=== PATIENT | female | born 1935 | race Caucasian/White ===

== ENCOUNTER 2017-06-16 05:44 | Inpatient (IN) ==
--- NOTE | 2017-06-11 10:40 | Order Completion Report ---
See report scanned to EMR
[2017-06-11 10:51] LABS: Basophils % 0.9 % (0.0-0.8); Eosinophils # 0.4 10*3/uL (0.0-0.87); Eosinophils % 7.9 % (0.00-10.9); Hematocrit 40.3 VOL% (35.7-47.0); Hemoglobin 13.4 GM/DL (12.0-16.0); Immature Granulocytes % 0.4 %; Immature Granulocytes Absolute 0.02 #; Lymphocytes % 21.9 % (21.3-54.2); Mean Corpuscular HGB Conc 33.3 GM/DL (32-36); Mean Corpuscular Hemoglobin 34 PG (27-34); Mean Corpuscular Volume 102.3 FL (87-102); Mean Platelet Volume 9.7 FL (9.6-12.0); Monocytes # 0.3 10*3/uL (0.11-0.8); Monocytes % 6.4 % (1.7-12.7); Neutrophils # 2.9 10*3/uL (1.4-7.4); Neutrophils % 62.5 % (38.7-73.9); Platelet Count 222 T/CUMM (130-400); Red Blood Count 3.94 MC/CUMM (3.8-5.5); Red Cell Distribution Width 12.7 % (9.3-17.3); White Blood Count 4.7 T/CUMM (4-12)
[2017-06-11 11:09] LABS: Calcium 8.5 MG/DL (8.5-10.1); Osmolality,Calculated 279.3 MOS/KG (273-304); Potassium 4.3 MMOL/L (3.5-5.1)
[2017-06-16] MEDS ORDERED: ceFAZolin 1,000 MG VIAL ONE (05:57)
[2017-06-16] MEDS ORDERED: SODIUM CHLORIDE 0.9% 50 ML IV ONE (05:57)
[2017-06-16] MEDS ORDERED: LACTATED RINGERS 1,000 ML IV SCH (07:00)
[2017-06-16] MEDS ORDERED: MORPHINE 2 MG/1 ML SYRINGE IV PRN (08:06)
[2017-06-16] MEDS ORDERED: ACETAMINOPHEN 325 MG TABLET PO PRN (08:06)
[2017-06-16] MEDS ORDERED: ONDANSETRON 4 MG/2 ML VIAL IV PRN ×2 (08:06→08:40)
--- NOTE | 2017-06-16 08:14 | Operative Note ---
Date of procedure: 06/16/17 Pre-op diagnosis: Gastrocutaneous fistula Post-op diagnosis: same Procedure: Procedure performed: Partial gastrectomy Procedure in detail: After informed consent was obtained the patient was taken operating suite lies upon the operating table. After general anesthesia was induced the abdomen was prepped and draped in usual sterile fashion. Upper midline incision was made and dissection carried down through skin and soft tissue. The fascia was opened. Abdominal cavity was entered. There were no adhesions in the area except for the stomach adherent up to the anterior abdominal wall just on the left of the incision. This was along the greater curvature and it was approximately a 2 cm tract of stomach extending up through the fascia and into the subcutaneous tissue forming the gastrocutaneous fistula. GARO stapling device with a blue load was used to transect the tongue of tissue along the greater curve. The portion of transected stomach was then dissected circumferentially out of the subcutaneous tissue and passed off the field. The defect was closed with 0 Prolene [id number] suture. The staple line on the remaining stomach was imbricated with 2-0 silk suture. There was excellent hemostasis and no leaking. The abdomen and wound were thoroughly irrigated and suctioned. There was good hemostasis and the fascia was closed with #1 Running Loop PDS. Skin closed with jessica. Quarter inch iodoform packing was placed in the wound where the gastrocutaneous fistula had been present. Sterile dressings applied and the patient was extubated and taken recovery room in stable condition. All lap and needle counts correct at the end of the case per Anesthesia: SHERIE Surgeon / Physician: Rosalio Jorgensen Estimated blood loss: other (Less than 10 cc) Specimens: other (Portion of stomach) Condition: stable Disposition: PACU Results - Labs CBC & BMP: 06/11/17 10:44 06/11/17 10:44 Discharge Plan - Discharge Medications No Action Esomeprazole Magnesium [Nexium] 40 mg PO DAILY Hydroxychloroquine [Plaquenil] 400 mg PO DAILY Aspirin [Ecotrin] 81 mg PO DAILY Ergocalciferol [Drisdol] 50,000 unit PO Q7D Phenytoin 7 ml PO DAILY Ondansetron Tab [Zofran Tab] 4 mg PO Q4H PRN PRN Reason: Nausea Polyethylene Glycol Powder [Miralax] 17 gm PO BEDTIME PRN PRN Reason: Constipation Magnesium Hydroxide Susp [Milk of Magnesia] 30 ml PO BEDTIME PRN PRN Reason: Constipation Simethicone 15 ml PO DAILY PRN PRN Reason: Gas Uti Stat 30 ml PO BID Bisacodyl Supp [Dulcolax Supp] 10 mg RECTAL DAILY PRN PRN Reason: Constipation Calcium (Citrate) [Citracal] 200 mg PEG BID Furosemide Tab [Lasix Tab] 20 mg PO DAILY levETIRAcetam LIQUID [Keppra Liquid] 5 ml PEG DAILY Acetaminophen Tab [Tylenol Tab] 650 mg PO Q4HR PRN PRN Reason: Pain Phenytoin 6 ml PO BEDTIME Folic Acid Tab 1 mg PO DAILY - Follow Up or Referral - Forms/Instructions
[2017-06-16] MEDS ORDERED: HYDROmorphone 2 MG/1 ML VIAL ONE (08:21)
[2017-06-16] MEDS ORDERED: ONDANSETRON 4 MG/2 ML VIAL ONE ×3 (08:21→09:00)
[2017-06-16] MEDS: HYDROmorphone 2 MG/1 ML VIAL IV PRN ×4 (08:23→09:01)
[2017-06-16] MEDS ORDERED: SEVOFLURANE 1 UNIT/15 MINUTE INH ONE ×2 (08:35→09:00)
[2017-06-16] MEDS ORDERED: PROPOFOL 200 MG/20 ML VIAL IV ONE ×2 (08:35→09:00)
[2017-06-16] MEDS ORDERED: SODIUM CHLORIDE 0.9% 250 ML IV ONE (08:36)
[2017-06-16] MEDS ORDERED: ROCURONIUM 100 MG/10 ML VIAL IV ONE ×2 (08:36→09:00)
[2017-06-16] MEDS ORDERED: fentaNYL 100 MCG/2 ML VIAL ONE (08:36)
[2017-06-16] MEDS ORDERED: NEOSTIGMINE 10 MG/10 ML VIAL ONE ×2 (08:36→09:00)
[2017-06-16] MEDS ORDERED: GLYCOPYRROLATE 0.4 MG/2 ML VIAL ONE ×2 (08:36→09:00)
[2017-06-16] MEDS ORDERED: PHENYLEPHRINE 1 MG/10 ML SYRINGE IV ONE (09:00)
[2017-06-16] MEDS ORDERED: LIDOCAINE 2% 5 ML VIAL ONE (09:00)
[2017-06-16] MEDS: DEXTROSE 5% NACL 0.45% 1,000 ML IV SCH (09:27)
--- NOTE | 2017-06-16 11:46 | Anesthesia Post-Op ---
Anesthesia Post OP - Post Ansesthetic Evaluation Patient seen in post op: Yes Resp: within normal limits CV: within normal limits Mental: within normal limits Temp: within normal limits [id number]: within normal limits Nausea and Vomiting: within normal limits Pain: within normal limits
[2017-06-16] MEDS: PANTOPRAZOLE 40 MG TABLET PO SCH (13:40)
[2017-06-16] MEDS: PHENYTOIN 100 MG/4 ML UDCUP PO SCH ×3 (13:41→21:43)
[2017-06-16] MEDS: levETIRAcetam LIQUID 100 MG/ML 30 ML/BOTTLE PO SCH ×2 (13:41→21:42)
[2017-06-16] MEDS: FUROSEMIDE 20 MG TABLET PO SCH (13:42)
[2017-06-16] MEDS: HYDROXYCHLOROQUINE 200 MG TABLET PO SCH (13:42)
[2017-06-17 06:19] LABS: Basophils % 0.3 % (0.0-0.8); Eosinophils # 0.2 10*3/uL (0.0-0.87); Eosinophils % 3.4 % (0.00-10.9); Hematocrit 39.4 VOL% (35.7-47.0); Hemoglobin 13.3 GM/DL (12.0-16.0); Immature Granulocytes % 0.3 %; Immature Granulocytes Absolute 0.02 #; Lymphocytes # 0.8 10*3/uL (1.4-4.0); Lymphocytes % 12.4 % (21.3-54.2); Mean Corpuscular HGB Conc 33.8 GM/DL (32-36); Mean Corpuscular Hemoglobin 35 PG (27-34); Mean Corpuscular Volume 102.3 FL (87-102); Mean Platelet Volume 10.3 FL (9.6-12.0); Monocytes # 0.4 10*3/uL (0.11-0.8); Monocytes % 5.9 % (1.7-12.7); Neutrophils # 4.7 10*3/uL (1.4-7.4); Neutrophils % 77.7 % (38.7-73.9); Platelet Count 224 T/CUMM (130-400); Red Blood Count 3.85 MC/CUMM (3.8-5.5); White Blood Count 6.1 T/CUMM (4-12)
[2017-06-17 06:54] LABS: Calcium 8.2 MG/DL (8.5-10.1); Osmolality,Calculated 274.7 MOS/KG (273-304); Potassium 4.5 MMOL/L (3.5-5.1)
[2017-06-17] MEDS: HYDROXYCHLOROQUINE 200 MG TABLET PO SCH (09:43)
[2017-06-17] MEDS: FUROSEMIDE 20 MG TABLET PO SCH (09:44)
[2017-06-17] MEDS: PANTOPRAZOLE 40 MG TABLET PO SCH (09:45)
[2017-06-17] MEDS: ASPIRIN EC 81 MG TABLET PO SCH (09:45)
[2017-06-17] MEDS: FOLIC ACID 1 MG TABLET PO SCH (09:46)
[2017-06-17] MEDS: PHENYTOIN 100 MG/4 ML UDCUP PO SCH ×2 (09:47→21:43)
[2017-06-17] MEDS: levETIRAcetam LIQUID 100 MG/ML 30 ML/BOTTLE PO SCH (09:50)
[2017-06-17] MEDS: DEXTROSE 5% NACL 0.45% 1,000 ML IV SCH (09:55)
--- NOTE | 2017-06-17 11:04 | Event Note ---
Patient is postop day #1 status post partial gastrectomy. She is tolerating clears without nausea, vomiting, or abdominal pain. She is passing flatus. Her pain is well controlled and she is voiding without difficulty. Vital signs are stable she is afebrile. Labs reviewed and unremarkable. Lungs are clear to auscultation bilaterally. Heart regular rate and rhythm. Abdomen is soft with appropriate postoperative tenderness; and is nondistended and bowel sounds are present. Midline incision is clean, dry and intact with jessica intact. Fistula site with packing in place and no active drainage or surrounding erythema. Skin K changes are chronic and noted to the abdomen from previous irritation injury. Calves are soft and nontender without pedal edema. At this point, the patient appears stable for discharge. She will require clear liquid diet for the next 3 days and then can advance to soft diet. We will see if she can transfer back to the nursing facility today.
--- NOTE | 2017-06-17 18:16 | Pathology Report from [facility] ---
[facility] [place] ACCESSION # : [id number] PATIENT NAME : Lili Mcgovern V. ORDERING DR : Rosalio Jorgensen MD CLINICAL HX: Gastrocutaneous fistula POST-OP DX: Same SPECIMEN INFO: Piece of stomach GROSS DESCRIPTION: The specimen is received in formalin labeled LILI MCGOVERN consists of a segment of stomach tissue measuring 3.0 x 1.8 cm. The serosa is pink-enriquez with a 0.4 x 0.4 cm fistula noted. A technical services representative section is submitted in one cassette. DIAGNOSIS FOR LILI MCGOVERN: GASTROCUTANEOUS FISTULA, EXCISION: Benign squamous and gastric mucosa with chronic inflammation and reactive changes. Intestinal metaplasia present. COLLECTED DATE: 06/16/2017 [facility] REPORT DATE: 06/17/2017 ELECTRONICALLY SIGNED BY: Mar Martinez M.D. 06/17/2017 - 11:34:55 MTDD
[2017-06-18] MEDS: DEXTROSE 5% NACL 0.45% 1,000 ML IV SCH (06:10)
[2017-06-18] MEDS: PANTOPRAZOLE 40 MG TABLET PO SCH (08:55)
[2017-06-18] MEDS: ASPIRIN EC 81 MG TABLET PO SCH (08:55)
[2017-06-18] MEDS: FOLIC ACID 1 MG TABLET PO SCH (08:55)
[2017-06-18] MEDS: FUROSEMIDE 20 MG TABLET PO SCH (08:55)
[2017-06-18] MEDS: HYDROXYCHLOROQUINE 200 MG TABLET PO SCH (08:55)
[2017-06-18] MEDS: PHENYTOIN 100 MG/4 ML UDCUP PO SCH ×2 (08:57→20:56)
[2017-06-18] MEDS: levETIRAcetam LIQUID 100 MG/ML 30 ML/BOTTLE PO SCH (08:59)
--- NOTE | 2017-06-18 09:26 | Event Note ---
Patient is postop day #2 status post partial gastrectomy. She feels much improved this morning. She is tolerating clears without nausea, vomiting, or abdominal pain. Her and daughter at the bedside. Vital signs stable; afebrile. Abdomen is soft and appropriately tender postop. Midline and surgical incision is clean, dry and intact with jessica intact. Skin changes improved over the abdomen. Initial site is clean. Are soft and nontender without pedal edema. We will plan to continue clears today and try a soft diet in the morning. She will likely be ready for discharge after 3 midnight stay tomorrow. I requested bed to chair Jessica lift transfers as the patient is nonambulatory.
[2017-06-19] MEDS: DEXTROSE 5% NACL 0.45% 1,000 ML IV SCH (05:53)
--- NOTE | 2017-06-19 07:49 | Event Note ---
Afebrile vital signs stable. She is doing well has been tolerating clear liquids. Mild incisional pain. Overall improving. Erythema continues to improve. She can be discharged back to [facility], hopefully today. Continue packing the old fistula site until it has completely healed. I will see the patient back in 2 weeks to remove the jessica. Family instructed to call sooner for any problems. She will begin advancing her diet to more soft food today.
--- NOTE | 2017-06-19 09:35 | Discharge Summary ---
Hospital Course - Hospital Course Hospital Course: The patient is an 81-year-old female who underwent partial gastrectomy for gastric cutaneous fistula on 06/16/[address] Jorgensen. Her postoperative course was uneventful. She tolerated liquid diet initially and then transitioned to soft diet without complication. [facility] with discharge instructions. No complications to note. Diagnosis - Discharge Diagnosis (1) Gastrocutaneous fistula Status: Acute Specialty Discharge - Follow Up or Referrals Follow up with: Rosalio Jorgensen MD [Physician] - 07/02/17 9:45 am (2 wks) Discharge Plan - Discharge Data Disposition: Disch To Home/Self Care Condition at Discharge: Stable Discharge Diet: other (Soft diet) Activity: increase activity as tolerated Contact your physician if you experience:: fever over 101, Redness or swelling, Nausea/Vomiting, Bleeding, pain uncontrolled by pain medications Wound / Dressing Care Instructions: -Keep surgical incision clean, dry and covered. -Change packing daily with quarter inch iodoform gauze - Discharge Medications New HYDROcodone/ACETAMIN 7.5-325 [[place]by 7.5-325] 1 tablet PO Q4H PRN #40 tablet PRN Reason: Pain Moderate To Severe (4-10) Continue Esomeprazole Magnesium [Nexium] 40 mg PO DAILY Hydroxychloroquine [Plaquenil] 400 mg PO DAILY Aspirin [Ecotrin] 81 mg PO DAILY Ergocalciferol [Drisdol] 50,000 unit PO Q7D Phenytoin 7 ml PO QAM Ondansetron Tab [Zofran Tab] 4 mg PO Q4H PRN PRN Reason: Nausea Polyethylene Glycol Powder [Miralax] 17 gm PO BEDTIME PRN PRN Reason: Constipation Magnesium Hydroxide Susp [Milk of Magnesia] 30 ml PO BEDTIME PRN PRN Reason: Constipation Simethicone 15 ml PO DAILY PRN PRN Reason: Gas Uti Stat 30 ml PO BID Bisacodyl Supp [Dulcolax Supp] 10 mg RECTAL DAILY PRN PRN Reason: Constipation Calcium (Citrate) [Citracal] 200 mg PO BID Furosemide Tab [Lasix Tab] 20 mg PO DAILY levETIRAcetam LIQUID [Keppra Liquid] 500 mg PO DAILY Acetaminophen Tab [Tylenol Tab] 650 mg PO Q4HR PRN PRN Reason: Pain Phenytoin 6 ml PO BEDTIME Folic Acid Tab 1 mg PO DAILY - Follow Up or Referral Follow Up: Rosalio Jorgensen MD [Physician] - 07/02/17 9:45 am (2 wks) - Forms/Instructions Instructions: Gastrectomy (DC) Exam - Constitutional Vitals: Period Temp Pulse Resp BP Sys/Meyers Pulse Ox Last 24 Hr 97.0 F-98.0 F 84-90 18-20 117-140/55-86 90-98 General appearance: no acute distress - Respiratory Respiratory exam: Present: clear to auscultation bilaterally - Cardiovascular Cardiovascular exam: Present: regular rate and rhythm - GI/Abdominal GI/Abdominal exam: Present: hypoactive bowel sounds, tenderness (Appropriately tender breast), soft, other (Surgical incision is clean, dry and intact. Sheela are intact. Fistulous clean without drainage) - Extremities Exam Extremities exam: Absent: calf tenderness, edema - Psychiatric Psychiatric exam: Present: normal affect, normal mood - Skin Skin exam: Present: normal color, warm DS: Provider Date of admission: 06/16/17 08:06 Primary care physician: Sid Ayala MD Attending physician on admission: Rosalio Jorgensen MD Consults: None Discharging clinician: Rashida Cadena PA-C
[2017-06-19] MEDS: ASPIRIN EC 81 MG TABLET PO SCH (10:13)
[2017-06-19] MEDS: FOLIC ACID 1 MG TABLET PO SCH (10:14)
[2017-06-19] MEDS: PHENYTOIN 100 MG/4 ML UDCUP PO SCH (10:14)
[2017-06-19] MEDS: HYDROXYCHLOROQUINE 200 MG TABLET PO SCH (10:14)
[2017-06-19] MEDS: FUROSEMIDE 20 MG TABLET PO SCH (10:14)
[2017-06-19] MEDS: levETIRAcetam LIQUID 100 MG/ML 30 ML/BOTTLE PO SCH (10:14)
[2017-06-19] MEDS: PANTOPRAZOLE 40 MG TABLET PO SCH (10:15)
[2017-06-19 12:01] VITALS: BP 146/64
== END 2017-06-19 12:25 | DRG 328 ==
LOC: N.OR 05:44 → N.SDSINP 05:45 → N.3E 08:06
PROVIDERS: ADMIT Surgery; ATTEND Surgery

== ENCOUNTER 2018-11-17 10:25 | Inpatient (IN) ==
[2018-11-17] MEDS ORDERED: LEVOFLOXACIN INJ 500 MG in PREMIX 1 EACH IV STA (10:42)
[2018-11-17 11:17] LABS: Basophils % 0.1 % (0.0-0.8); Hematocrit 36.6 VOL% (35.7-47.0); Hemoglobin 11.3 GM/DL (12.0-16.0); Immature Granulocytes % 2.3 %; Immature Granulocytes Absolute 0.18 #; Lymphocytes # 0.6 10*3/uL (1.4-4.0); Lymphocytes % 7.8 % (21.3-54.2); Mean Corpuscular HGB Conc 30.9 GM/DL (32-36); Mean Corpuscular Hemoglobin 32 PG (27-34); Mean Corpuscular Volume 104.6 FL (87-102); Monocytes # 0.5 10*3/uL (0.11-0.8); Monocytes % 6.1 % (1.7-12.7); Neutrophils # 6.4 10*3/uL (1.4-7.4); Neutrophils % 83.7 % (38.7-73.9); Platelet Count 219 T/CUMM (130-400); Red Cell Distribution Width 14.3 % (9.3-17.3); White Blood Count 7.7 T/CUMM (4-12)
[2018-11-17 11:34] LABS: Bilirubin,Total 0.8 MG/DL (0.2-1.0); Calcium 8.8 MG/DL (8.5-10.1); Osmolality,Calculated 283.3 MOS/KG (273-304); Potassium 3.8 MMOL/L (3.5-5.1)
[2018-11-17 13:07] LABS: Anisocytosis 2+; Band Neutrophils 45 % (0-10); Lymphocytes 9 % (20-55); Metamyelocytes 7 %; Segmented Neutrophils 35 % (50-85); Total Cells Counted 100
[2018-11-17 13:08] LABS: Hypochromasia 1+; Macrocytosis 2+; Platelet Estimate Normal; Polychromasia 1+
[2018-11-17] MEDS ORDERED: ONDANSETRON 4 MG/2 ML VIAL IV PRN (13:32)
[2018-11-17] MEDS ORDERED: ALBUTEROL 2.5 MG/3 ML NEB RESP TX PRN (13:32)
[2018-11-17] MEDS ORDERED: FUROSEMIDE 40 MG/4 ML VIAL IV STA (13:43)
[2018-11-17] MEDS ORDERED: PANTOPRAZOLE 40 MG VIAL IV SCH (14:00)
[2018-11-17 14:40] LABS: Amorphous Crystals,Urine Few /HPF (Few); Apearance,Urine Slightly Hazy (Clear); Bilirubin,Urine Negative (Negative); Blood, Urine Negative (Negative); Glucose,Urine (UA) Negative (Negative); Ketones,Urine 5 mg/dL (Negative); Nitrite,Urine Negative (Negative); Protein,Urine 100 MG/DL; Urine Color Amber (Yellow); Urine Specific Gravity 1.026 (1.001-1.035); Urine Urobilinogen < 2.0 EU/DL (0.2-1.0)
[2018-11-17 14:45] LABS: ABG Base Excess 3.8 MMOL/L (-2.5-2.5); ABG HCO3 27.8 MMOL/L (20-26); ABG Oxygen Saturation 95.7 % (95-100); ABG PCO2 40.6 MM HG (35-48); ABG PH 7.449 (7.35-7.45); ABG PO2 73.9 MM HG (80-95); ABG TCO2 24.9 MMOL/L (23-27)
[2018-11-17] MEDS ORDERED: SODIUM CHLORIDE 0.9% 100 ML IV ONE (16:07)
[2018-11-17] MEDS: cefTRIAXone 1,000 MG in SYRINGE 1 EACH IV SCH (16:23)
[2018-11-17] MEDS: AZITHROMYCIN INJ 500 MG in SODIUM CHLORIDE 0.9% 250 ML IV SCH (16:54)
[2018-11-17] MEDS: ENOXAPARIN 40 MG/0.4 ML SYRINGE SUBCUT SCH (21:19)
[2018-11-18 05:37] LABS: Basophils % 0.2 % (0.0-0.8); Eosinophils % 0.2 % (0.00-10.9); Hematocrit 34.4 VOL% (35.7-47.0); Hemoglobin 10.6 GM/DL (12.0-16.0); Immature Granulocytes % 2.7 %; Immature Granulocytes Absolute 0.24 #; Lymphocytes # 0.6 10*3/uL (1.4-4.0); Lymphocytes % 7.1 % (21.3-54.2); Mean Corpuscular HGB Conc 30.8 GM/DL (32-36); Mean Corpuscular Hemoglobin 32 PG (27-34); Mean Corpuscular Volume 104.9 FL (87-102); Mean Platelet Volume 10.1 FL (9.6-12.0); Monocytes # 0.5 10*3/uL (0.11-0.8); Monocytes % 5.7 % (1.7-12.7); NRBC # 0.02 10*3/uL; Neutrophils # 7.6 10*3/uL (1.4-7.4); Neutrophils % 84.1 % (38.7-73.9); Platelet Count 204 T/CUMM (130-400); Red Blood Count 3.28 MC/CUMM (3.8-5.5); Red Cell Distribution Width 14.3 % (9.3-17.3)
[2018-11-18 05:57] LABS: Albumin 1.8 G/DL (3.4-5.0); Bilirubin,Total 0.9 MG/DL (0.2-1.0); Calcium 8.6 MG/DL (8.5-10.1); Potassium 3.6 MMOL/L (3.5-5.1); Total Protein 6.5 G/DL (6.4-8.3)
[2018-11-18 06:06] LABS: Band Neutrophils 12 % (0-10); Lymphocytes 4 % (20-55); Segmented Neutrophils 78 % (50-85); Total Cells Counted 100
[2018-11-18 06:07] LABS: Hypochromasia Slight; Macrocytosis Slight
[2018-11-18] MEDS ORDERED: BISACODYL 10 MG SUPP RECTAL PRN (09:53)
[2018-11-18] MEDS ORDERED: POLYETHYLENE GLYCOL POWDER 17 GM PACK PO PRN (09:53)
[2018-11-18] MEDS ORDERED: MAGNESIUM HYDROXIDE SUSP 30 ML UDCUP PO PRN (09:53)
[2018-11-18] MEDS: SODIUM CHLORIDE 0.9% 1,000 ML IV SCH (17:16)
[2018-11-18] MEDS: cefTRIAXone 1,000 MG in SYRINGE 1 EACH IV SCH (17:16)
[2018-11-18] MEDS: AZITHROMYCIN INJ 500 MG in SODIUM CHLORIDE 0.9% 250 ML IV SCH (17:21)
[2018-11-18] MEDS: CALCIUM (CITRATE) 200 MG TABLET PO SCH (21:45)
[2018-11-18] MEDS: ENOXAPARIN 40 MG/0.4 ML SYRINGE SUBCUT SCH (21:45)
[2018-11-18] MEDS: PHENYTOIN ER 100 MG CAPSULE PO SCH (21:45)
[2018-11-19 04:29] LABS: Basophils % 0.1 % (0.0-0.8); Eosinophils # 0.1 10*3/uL (0.0-0.87); Eosinophils % 0.5 % (0.00-10.9); Hematocrit 33.9 VOL% (35.7-47.0); Hemoglobin 10.5 GM/DL (12.0-16.0); Immature Granulocytes % 4.8 %; Immature Granulocytes Absolute 0.47 #; Lymphocytes # 0.7 10*3/uL (1.4-4.0); Lymphocytes % 7.3 % (21.3-54.2); Mean Corpuscular Hemoglobin 32 PG (27-34); Mean Corpuscular Volume 104.6 FL (87-102); Mean Platelet Volume 10.2 FL (9.6-12.0); Monocytes # 0.5 10*3/uL (0.11-0.8); Monocytes % 4.8 % (1.7-12.7); Neutrophils # 8.1 10*3/uL (1.4-7.4); Neutrophils % 82.5 % (38.7-73.9); Platelet Count 250 T/CUMM (130-400); Red Blood Count 3.24 MC/CUMM (3.8-5.5); Red Cell Distribution Width 14.5 % (9.3-17.3); White Blood Count 9.9 T/CUMM (4-12)
[2018-11-19 05:00] LABS: Calcium 8.5 MG/DL (8.5-10.1); Osmolality,Calculated 291.7 MOS/KG (273-304); Potassium 3.2 MMOL/L (3.5-5.1)
[2018-11-19 05:06] LABS: Platelet Estimate Normal
[2018-11-19 05:07] LABS: Polychromasia Few
[2018-11-19] MEDS: FOLIC ACID 1 MG TABLET PO SCH (09:04)
[2018-11-19] MEDS: ASPIRIN EC 81 MG TABLET PO SCH (09:04)
[2018-11-19] MEDS: PANTOPRAZOLE 40 MG TABLET PO SCH (09:04)
[2018-11-19] MEDS: CALCIUM (CITRATE) 200 MG TABLET PO SCH (09:04)
[2018-11-19] MEDS: HYDROXYCHLOROQUINE 200 MG TABLET PO SCH (09:04)
[2018-11-19] MEDS: ESCITALOPRAM 10 MG TABLET PO SCH (09:04)
[2018-11-19] MEDS: SODIUM CHLORIDE 0.9% 1,000 ML IV SCH (09:05)
[2018-11-19] MEDS: levETIRAcetam 500 MG TABLET PO SCH (09:05)
[2018-11-19] MEDS ORDERED: MAGNESIUM SULF RIDER 4 GM in PREMIX 1 EACH IV PRN (09:29)
[2018-11-19] MEDS ORDERED: MAGNESIUM SULF RIDER 2 GM in PREMIX 1 EACH IV PRN (09:29)
[2018-11-19] MEDS ORDERED: AZITHROMYCIN 250 MG TABLET PO SCH (10:00)
[2018-11-19] MEDS: POTASSIUM CHLORIDE RIDER 10 MEQ in PREMIX 1 EACH IV PRN ×4 (12:10→18:09)
[2018-11-19] MEDS ORDERED: ACETAMINOPHEN 325 MG TABLET PO PRN (15:15)
[2018-11-19] MEDS: cefTRIAXone 1,000 MG in SYRINGE 1 EACH IV SCH (15:29)
[2018-11-19] MEDS: cefTAZidime 1,000 MG in SYRINGE 1 EACH IV SCH (18:09)
[2018-11-19] MEDS ORDERED: QUEtiapine 25 MG TABLET PO SCH (21:00)
[2018-11-19] MEDS: ENOXAPARIN 40 MG/0.4 ML SYRINGE SUBCUT SCH (21:11)
[2018-11-19] MEDS: PHENYTOIN ER 100 MG CAPSULE PO SCH (21:11)
[2018-11-19] MEDS: QUEtiapine 25 MG TABLET PO SCH (21:12)
[2018-11-20] MEDS: cefTAZidime 1,000 MG in SYRINGE 1 EACH IV SCH ×3 (00:03→17:20)
[2018-11-20 05:57] LABS: Basophils # 0.1 10*3/uL (0.0-0.2); Basophils % 0.9 % (0.0-0.8); Eosinophils # 0.3 10*3/uL (0.0-0.87); Eosinophils % 4.2 % (0.00-10.9); Hematocrit 32.7 VOL% (35.7-47.0); Hemoglobin 9.8 GM/DL (12.0-16.0); Immature Granulocytes % 6.2 %; Immature Granulocytes Absolute 0.48 #; Lymphocytes # 0.7 10*3/uL (1.4-4.0); Lymphocytes % 9.3 % (21.3-54.2); Mean Corpuscular Hemoglobin 32 PG (27-34); Mean Corpuscular Volume 107.6 FL (87-102); Mean Platelet Volume 10.4 FL (9.6-12.0); Monocytes # 0.4 10*3/uL (0.11-0.8); Monocytes % 4.9 % (1.7-12.7); Neutrophils # 5.8 10*3/uL (1.4-7.4); Neutrophils % 74.5 % (38.7-73.9); Platelet Count 230 T/CUMM (130-400); Red Blood Count 3.04 MC/CUMM (3.8-5.5); Red Cell Distribution Width 14.7 % (9.3-17.3); White Blood Count 7.8 T/CUMM (4-12)
[2018-11-20 06:13] LABS: Calcium 8.2 MG/DL (8.5-10.1); Osmolality,Calculated 287.7 MOS/KG (273-304); Potassium 3.7 MMOL/L (3.5-5.1)
[2018-11-20 06:23] LABS: Band Neutrophils 3 % (0-10); Eosinophils 5 % (0-10); Hypochromasia 1+; Lymphocytes 8 % (20-55); Platelet Estimate Adequate; Segmented Neutrophils 78 % (50-85); Total Cells Counted 100
[2018-11-20] MEDS ORDERED: PHENYTOIN ER 100 MG CAPSULE PO ONE (09:00)
[2018-11-20] MEDS: ASPIRIN EC 81 MG TABLET PO SCH (11:04)
[2018-11-20] MEDS: levETIRAcetam 500 MG TABLET PO SCH (11:04)
[2018-11-20] MEDS: HYDROXYCHLOROQUINE 200 MG TABLET PO SCH (11:04)
[2018-11-20] MEDS: PANTOPRAZOLE 40 MG TABLET PO SCH (11:04)
[2018-11-20] MEDS: ESCITALOPRAM 10 MG TABLET PO SCH (11:04)
[2018-11-20] MEDS: FOLIC ACID 1 MG TABLET PO SCH (11:04)
[2018-11-20] MEDS: DORNASE ALFA 2.5 MG/2.5 ML VIAL RESP TX SCH (19:05)
[2018-11-20] MEDS: PHENYTOIN ER 100 MG CAPSULE PO SCH (20:56)
[2018-11-20] MEDS: ENOXAPARIN 40 MG/0.4 ML SYRINGE SUBCUT SCH (20:56)
[2018-11-20] MEDS: QUEtiapine 25 MG TABLET PO SCH (20:57)
[2018-11-21] MEDS: cefTAZidime 1,000 MG in SYRINGE 1 EACH IV SCH ×3 (01:48→16:51)
[2018-11-21] MEDS: DORNASE ALFA 2.5 MG/2.5 ML VIAL RESP TX SCH ×2 (07:11→19:39)
[2018-11-21] MEDS: ESCITALOPRAM 10 MG TABLET PO SCH (09:56)
[2018-11-21] MEDS: HYDROXYCHLOROQUINE 200 MG TABLET PO SCH (09:56)
[2018-11-21] MEDS: PANTOPRAZOLE 40 MG TABLET PO SCH (09:56)
[2018-11-21] MEDS: ASPIRIN EC 81 MG TABLET PO SCH (09:56)
[2018-11-21] MEDS: levETIRAcetam 500 MG TABLET PO SCH (09:56)
[2018-11-21] MEDS: FOLIC ACID 1 MG TABLET PO SCH (09:56)
[2018-11-21] MEDS: ENOXAPARIN 40 MG/0.4 ML SYRINGE SUBCUT SCH (20:32)
[2018-11-21] MEDS: PHENYTOIN ER 100 MG CAPSULE PO SCH (20:33)
[2018-11-21] MEDS ORDERED: MELATONIN 3 MG TABLET PO SCH (21:00)
[2018-11-22] MEDS: cefTAZidime 1,000 MG in SYRINGE 1 EACH IV SCH ×2 (00:24→09:40)
[2018-11-22] MEDS: DORNASE ALFA 2.5 MG/2.5 ML VIAL RESP TX SCH (07:53)
[2018-11-22] MEDS: FOLIC ACID 1 MG TABLET PO SCH (09:33)
[2018-11-22] MEDS: ASPIRIN EC 81 MG TABLET PO SCH (09:34)
[2018-11-22] MEDS: HYDROXYCHLOROQUINE 200 MG TABLET PO SCH (09:34)
[2018-11-22] MEDS: ESCITALOPRAM 10 MG TABLET PO SCH (09:34)
[2018-11-22] MEDS: PANTOPRAZOLE 40 MG TABLET PO SCH (09:34)
[2018-11-22] MEDS: levETIRAcetam 500 MG TABLET PO SCH (09:34)
[2018-11-22 11:09] VITALS: BP 127/57
== END 2018-11-22 14:10 | DRG 177 ==
LOC: EDUNIT# → EDBD → N.ED 10:25 → SUATTDRO 13:32 → N.EDINP 13:32 → N.ICU 17:32 → N.5E 11-18 16:22
PROVIDERS: ADMIT Internal Medicine; ATTEND Internal Medicine

== ENCOUNTER 2019-04-21 23:24 | Inpatient (IN) ==
[2019-04-22 00:10] LABS: PT Patient Result 10.7 SECS; Partial Thromboplastin Time 22.4 SECS (0-40)
[2019-04-22 00:16] LABS: Alanine Aminotransferase 15 U/L (13-56); Albumin 2.8 G/DL (3.4-5.0); Alkaline Phosphatase 116 U/L (45-117); Aspartate Amino Transferase 19 U/L (0-37); Bilirubin,Total < 0.39 MG/DL (0.2-1.0); Blood Urea Nitrogen 15 MG/DL (7-18); Calcium 8.4 MG/DL (8.5-10.1); Glucose 136 MG/DL (74-106); Osmolality,Calculated 283.3 MOS/KG (273-304); Total Protein 7.1 G/DL (6.4-8.3)
[2019-04-22 00:43] LABS: Basophils % 0.3 % (0.0-0.8); Eosinophils # 0.4 10*3/uL (0.0-0.87); Eosinophils % 10.5 % (0.00-10.9); Hematocrit 18.9 VOL% (35.7-47.0); Immature Granulocytes % 0.5 %; Immature Granulocytes Absolute 0.02 #; Lymphocytes # 0.7 10*3/uL (1.4-4.0); Lymphocytes % 19.1 % (21.3-54.2); Mean Corpuscular HGB Conc 28.6 GM/DL (32-36); Mean Corpuscular Volume 95.5 FL (87-102); Mean Platelet Volume 10.4 FL (9.6-12.0); Monocytes % 8.1 % (1.7-12.7); Neutrophils % 61.5 % (38.7-73.9); Platelet Count 207 T/CUMM (130-400); Red Blood Count 1.98 MC/CUMM (3.8-5.5); White Blood Count 3.8 T/CUMM (4-12)
[2019-04-22 00:58] LABS: Hemoglobin 5.4 GM/DL (12.0-16.0)
[2019-04-22 01:04] LABS: Anisocytosis 1+; Hypochromasia 2+; Microcytosis 1+; Platelet Estimate Normal; Polychromasia Few
[2019-04-22] MEDS ORDERED: ONDANSETRON 4 MG/2 ML VIAL IV PRN (02:39)
[2019-04-22] MEDS ORDERED: NICOTINE 21 MG/24 HR PATCH TRANSDERM PRN (02:39)
[2019-04-22] MEDS ORDERED: MORPHINE 4 MG/1 ML VIAL IV PRN (02:39)
[2019-04-22] MEDS ORDERED: SODIUM CHLORIDE 0.9% 1,000 ML IV PRN (02:39)
[2019-04-22] MEDS ORDERED: PANTOPRAZOLE INJ 80 MG in SODIUM CHLORIDE 0.9% 100 ML IV ONE (03:30)
[2019-04-22] MEDS: PANTOPRAZOLE INJ 200 MG in SODIUM CHLORIDE 0.9% 250 ML IV SCH (05:00)
[2019-04-22 08:24] LABS: Basophils % 0.6 % (0.0-0.8); Eosinophils # 0.4 10*3/uL (0.0-0.87); Eosinophils % 9.8 % (0.00-10.9); Hematocrit 22.3 VOL% (35.7-47.0); Hemoglobin 6.7 GM/DL (12.0-16.0); Immature Granulocytes % 0.6 %; Immature Granulocytes Absolute 0.02 #; Lymphocytes # 0.7 10*3/uL (1.4-4.0); Lymphocytes % 19.1 % (21.3-54.2); Mean Corpuscular Volume 94.5 FL (87-102); Neutrophils % 62.9 % (38.7-73.9); Platelet Count 180 T/CUMM (130-400); Red Blood Count 2.36 MC/CUMM (3.8-5.5); Red Cell Distribution Width 14.7 % (9.3-17.3); White Blood Count 3.6 T/CUMM (4-12)
[2019-04-22] MEDS ORDERED: LACTATED RINGERS 500 ML IV SCH (10:00)
[2019-04-22 15:28] LABS: Hemoglobin 8.3 GM/DL (12.0-16.0)
[2019-04-23 05:27] LABS: Basophils % 0.7 % (0.0-0.8); Eosinophils # 0.4 10*3/uL (0.0-0.87); Eosinophils % 10.3 % (0.00-10.9); Hemoglobin 8.3 GM/DL (12.0-16.0); Immature Granulocytes % 0.7 %; Immature Granulocytes Absolute 0.03 #; Lymphocytes # 0.7 10*3/uL (1.4-4.0); Lymphocytes % 15.9 % (21.3-54.2); Mean Corpuscular HGB Conc 30.7 GM/DL (32-36); Mean Corpuscular Volume 93.8 FL (87-102); Mean Platelet Volume 10.4 FL (9.6-12.0); Monocytes % 6.6 % (1.7-12.7); Neutrophils % 65.8 % (38.7-73.9); Platelet Count 196 T/CUMM (130-400); Red Blood Count 2.88 MC/CUMM (3.8-5.5); White Blood Count 4.3 T/CUMM (4-12)
[2019-04-23] MEDS: PANTOPRAZOLE INJ 200 MG in SODIUM CHLORIDE 0.9% 250 ML IV SCH (06:29)
[2019-04-23] MEDS ORDERED: POTASSIUM CHLORIDE 20 MEQ TABLET PO PRN (14:45)
[2019-04-23] MEDS: POTASSIUM CHLORIDE RIDER 10 MEQ in PREMIX 1 EACH IV PRN (17:37)
[2019-04-23] MEDS: POLYETHYLENE GLYCOL POWDER 17 GM PACK PO SCH (21:00)
[2019-04-24] MEDS: POTASSIUM CHLORIDE RIDER 10 MEQ in PREMIX 1 EACH IV PRN ×2 (00:11→02:07)
[2019-04-24 03:59] LABS: Basophils % 0.5 % (0.0-0.8); Eosinophils # 0.3 10*3/uL (0.0-0.87); Eosinophils % 7.3 % (0.00-10.9); Hematocrit 27.6 VOL% (35.7-47.0); Hemoglobin 8.3 GM/DL (12.0-16.0); Immature Granulocytes Absolute 0.04 #; Lymphocytes # 0.4 10*3/uL (1.4-4.0); Lymphocytes % 10.8 % (21.3-54.2); Mean Corpuscular HGB Conc 30.1 GM/DL (32-36); Mean Corpuscular Volume 93.9 FL (87-102); Mean Platelet Volume 10.4 FL (9.6-12.0); Monocytes % 6.3 % (1.7-12.7); Neutrophils % 74.1 % (38.7-73.9); Platelet Count 192 T/CUMM (130-400); Red Blood Count 2.94 MC/CUMM (3.8-5.5); Red Cell Distribution Width 14.8 % (9.3-17.3)
[2019-04-24] MEDS: PANTOPRAZOLE INJ 200 MG in SODIUM CHLORIDE 0.9% 250 ML IV SCH (06:19)
[2019-04-24 07:44] LABS: Albumin 2.4 G/DL (3.4-5.0); Bilirubin,Total 0.5 MG/DL (0.2-1.0); Calcium 7.7 MG/DL (8.5-10.1); Osmolality,Calculated 275.4 MOS/KG (273-304); Total Protein 6.1 G/DL (6.4-8.3)
[2019-04-24] MEDS: POLYETHYLENE GLYCOL POWDER 17 GM PACK PO SCH ×2 (10:03→20:54)
[2019-04-24] MEDS: PANTOPRAZOLE 40 MG TABLET PO SCH ×2 (10:03→20:54)
[2019-04-24] MEDS ORDERED: ALBUTEROL 2.5 MG/3 ML NEB RESP TX PRN (14:58)
[2019-04-24] MEDS ORDERED: ERGOCALCIFEROL 50,000 UNIT CAPSULE PO SCH (15:00)
[2019-04-24] MEDS: CALCIUM (CITRATE) 200 MG TABLET PO SCH (20:54)
[2019-04-25] MEDS ORDERED: PROPOFOL 200 MG/20 ML VIAL IV ONE (10:49)
[2019-04-25] MEDS ORDERED: LIDOCAINE 2% 5 ML VIAL ONE (10:49)
[2019-04-25] MEDS ORDERED: ETOMIDATE 20 MG/10 ML VIAL IV ONE (10:49)
[2019-04-25] MEDS: CALCIUM (CITRATE) 200 MG TABLET PO SCH ×3 (14:27→22:20)
[2019-04-25] MEDS: POLYETHYLENE GLYCOL POWDER 17 GM PACK PO SCH ×3 (14:28→22:20)
[2019-04-25] MEDS: PANTOPRAZOLE 40 MG TABLET PO SCH ×3 (14:28→22:20)
[2019-04-25] MEDS: ESCITALOPRAM 10 MG TABLET PO SCH (14:39)
[2019-04-25] MEDS: FOLIC ACID 1 MG TABLET PO SCH (14:39)
[2019-04-25] MEDS: HYDROXYCHLOROQUINE 200 MG TABLET PO SCH (14:39)
[2019-04-25] MEDS: levETIRAcetam 500 MG TABLET PO SCH (14:39)
[2019-04-26] MEDS ORDERED: AMOXICILLIN 875 MG TABLET PO SCH (09:00)
[2019-04-26] MEDS ORDERED: LANSOPRAZOLE ODT 30 MG TABLET PO SCH (09:00)
[2019-04-26] MEDS: ESCITALOPRAM 10 MG TABLET PO SCH (09:10)
[2019-04-26] MEDS: levETIRAcetam 500 MG TABLET PO SCH (09:10)
[2019-04-26] MEDS: CALCIUM (CITRATE) 200 MG TABLET PO SCH (09:11)
[2019-04-26] MEDS: HYDROXYCHLOROQUINE 200 MG TABLET PO SCH (09:11)
[2019-04-26] MEDS: FOLIC ACID 1 MG TABLET PO SCH (09:11)
[2019-04-26] MEDS: POLYETHYLENE GLYCOL POWDER 17 GM PACK PO SCH (09:23)
[2019-04-26 12:04] VITALS: BP 135/63
== END 2019-04-26 13:45 | DRG 378 ==
LOC: EDBD → EDUNIT# → N.ED 23:24 → SUATTDRO 04-22 02:39 → SUPCPDRO 04-22 02:39 → N.EDINP 04-22 02:39 → N.4E 04-22 03:31
PROVIDERS: ADMIT Internal Medicine Geriatric Medicine